=== PATIENT | female | born 1985 | race Caucasian/White ===

== ENCOUNTER 2018-07-22 08:57 | Outpatient (CLI) | payer MEDICAID ==
[2018-07-22] VITALS (19 sets, daily range): BP systolic 111–135; BP diastolic 62–95
[~2018-07-22 08:57] MED LIST: BUS15T PO; GABA300C PO; HYDR-569 PO; MULT1TAB74 PO; ONDA4TAB6 PO
== END 2018-07-22 23:59 | disposition home or self-care (01) ==
LOC: CARD DIAG 08:57
PROVIDERS: ATTEND Internal Medicine Interventional Cardiology
DX: R42 Dizziness and giddiness (principal); Z87.891 Personal history of nicotine dependence
CPT/HCPCS: 93660

== ENCOUNTER 2018-08-18 16:03 | Emergency (ER) | payer MEDICAID ==
[~2018-08-18] VITALS: Ht 167.6 cm; Wt 96.4 kg
[~2018-08-18 16:03] MED LIST changes: +HYDR-4383 PO; -HYDR-569 PO
[2018-08-18] MEDS ORDERED: DOXY100C43 PO (16:57)
[2018-08-18 17:27] VITALS: BP 115/61
== END 2018-08-18 17:30 | disposition home or self-care (01) ==
LOC: ER 16:04
DX: R68.84 Jaw pain (principal); G43.909 Migraine, unspecified, not intractable, without status migrainosus; G89.29 Other chronic pain; F41.9 Anxiety disorder, unspecified; Z56.0 Unemployment, unspecified; Z88.1 Allergy status to other antibiotic agents; Z88.2 Allergy status to sulfonamides; Z88.8 Allergy status to other drugs, medicaments and biological substances
CPT/HCPCS: 99283

== ENCOUNTER 2019-08-20 09:24 | Emergency (ER) | payer MEDICAID ==
[~2019-08-20] VITALS: Ht 165.1 cm; Wt 93.9 kg
[~2019-08-20 09:24] MED LIST changes: +PRED50TA PO
[2019-08-20 09:31] VITALS: BP 118/79
[2019-08-20] MEDS ORDERED: azithromycin 250mg tablet PO ONE ×2 (11:20)
[2019-08-20] MEDS ORDERED: AZIT-63 PO (11:23)
== END 2019-08-20 11:50 | disposition home or self-care (01) ==
LOC: ER 09:24
DX: J02.0 Streptococcal pharyngitis (principal); G43.909 Migraine, unspecified, not intractable, without status migrainosus; G89.29 Other chronic pain; F41.9 Anxiety disorder, unspecified; Z98.890 Other specified postprocedural states; Z56.0 Unemployment, unspecified; Z88.1 Allergy status to other antibiotic agents; Z88.2 Allergy status to sulfonamides; Z79.2 Long term (current) use of antibiotics; Z79.899 Other long term (current) drug therapy
CPT/HCPCS: 87880; 99283

== ENCOUNTER 2021-12-06 19:48 | Emergency (ER) | payer MEDICAID ==
[~2021-12-06] VITALS: Ht 165.1 cm; Wt 98.6 kg
[~2021-12-06 19:48] MED LIST changes: +MULT-620 PO; -MULT1TAB74 PO
[2021-12-06 19:55] VITALS: BP 128/80
[2021-12-06 20:24] LABS: BASOPHILS % (AUTO) 0.6 % (0-1); EOSINOPHILS # (AUTO) 0.2 X10'3 (0-0.9); EOSINOPHILS % (AUTO) 2.3 % (0-6); HEMOGLOBIN 12.5 g/dl (12.0-16.0); LYMPHOCYTES # (AUTO) 2.7 X10'3 (1.1-4.8); LYMPHOCYTES % (AUTO) 36.4 % (21-51); MEAN CORPUSCULAR HEMOGLOBIN 30.7 PG (27.0-31.0); MEAN CORPUSCULAR HGB CONC 34.6 g/dL (33.0-36.5); MEAN CORPUSCULAR VOLUME 88.7 FL (78-98); MEAN PLATELET VOLUME 8.4 FL (7.4-10.4); MONOCYTES # (AUTO) 0.3 X10'3 (0-0.9); MONOCYTES % (AUTO) 4.6 % (2-12); NEUTROPHILS # (AUTO) 4.1 X10'3 (1.8-7.7); NEUTROPHILS % (AUTO) 56.1 % (42-75); PLATELET COUNT 236 X10'3 (140-440); RED BLOOD COUNT 4.06 X10'6 (4.20-5.60); WHITE BLOOD COUNT 7.3 X10'3 (4.5-11.0)
[2021-12-06 20:32] LABS: D-DIMER 0.29 MG/L FEU (0-0.50)
[2021-12-06 20:36] LABS: ALANINE AMINOTRANSFERASE 49 U/L (12-78); ALBUMIN 3.5 G/DL (3.4-5.0); ALBUMIN/GLOBULIN RATIO 1.1 (1.1-1.5); ALKALINE PHOSPHATASE 49 IU/L (46-116); ANION GAP 8 (8-16); ASPARTATE AMINO TRANSFERASE 23 U/L (10-37); BILIRUBIN,TOTAL 0.4 MG/DL (0.1-1.0); BLOOD UREA NITROGEN 18 MG/DL (7-18); BUN/CREATININE RATIO 21.4 (6.6-38.0); CHLORIDE 105 MMOL/L (99-107); CREATININE 0.84 MG/DL (0.40-0.90); GLUCOSE 71 MG/DL (70-104); POTASSIUM 3.4 MMOL/L (3.5-5.1); SODIUM 142 MMOL/L (135-145); TOTAL CARBON DIOXIDE 28.8 MMOL/L (24-32); TOTAL PROTEIN 6.7 G/DL (6.4-8.2); eGFR 77 ML/MIN
== END 2021-12-06 22:25 | disposition home or self-care (01) ==
LOC: ER 19:49
DX: U09.9 Post COVID-19 condition, unspecified (principal); R07.89 Other chest pain; R11.0 Nausea; G43.909 Migraine, unspecified, not intractable, without status migrainosus; G89.29 Other chronic pain; F41.9 Anxiety disorder, unspecified; Z98.890 Other specified postprocedural states; Z56.0 Unemployment, unspecified; Z88.1 Allergy status to other antibiotic agents; Z88.8 Allergy status to other drugs, medicaments and biological substances; Z79.899 Other long term (current) drug therapy
CPT/HCPCS: 36415; 71045; 80053; 84484; 85025; 85379; 93005; 99285

== ENCOUNTER 2022-12-03 02:23 | Emergency (ER) | payer MEDICAID ==
[~2022-12-03] VITALS: Ht 165.1 cm; Wt 93.2 kg
[2022-12-03 03:11] LABS: BASOPHILS % (AUTO) 0.5 % (0-1); EOSINOPHILS # (AUTO) 0.2 X10'3 (0-0.9); EOSINOPHILS % (AUTO) 1.8 % (0-6); HEMATOCRIT 35.4 % (35.0-45.0); HEMOGLOBIN 12.2 g/dl (12.0-16.0); LYMPHOCYTES # (AUTO) 3.2 X10'3 (1.1-4.8); LYMPHOCYTES % (AUTO) 35.3 % (21-51); MEAN CORPUSCULAR HEMOGLOBIN 30.8 PG (27.0-31.0); MEAN CORPUSCULAR HGB CONC 34.5 g/dL (33.0-36.5); MEAN CORPUSCULAR VOLUME 89.2 FL (78-98); MEAN PLATELET VOLUME 8.3 FL (7.4-10.4); MONOCYTES # (AUTO) 0.4 X10'3 (0-0.9); MONOCYTES % (AUTO) 4.6 % (2-12); NEUTROPHILS # (AUTO) 5.2 X10'3 (1.8-7.7); NEUTROPHILS % (AUTO) 57.8 % (42-75); PLATELET COUNT 224 X10'3 (140-440); RED BLOOD COUNT 3.97 X10'6 (4.20-5.60); RED CELL DISTRIBUTION WIDTH 12.7 % (11.5-14.5); WHITE BLOOD COUNT 8.9 X10'3 (4.5-11.0)
[2022-12-03 03:32] LABS: ALANINE AMINOTRANSFERASE 44 U/L (12-78); ALBUMIN 3.5 G/DL (3.4-5.0); ALBUMIN/GLOBULIN RATIO 1.1 (1.1-1.5); ALKALINE PHOSPHATASE 50 IU/L (46-116); ANION GAP 5 (8-16); ASPARTATE AMINO TRANSFERASE 27 U/L (10-37); BILIRUBIN,TOTAL 0.3 MG/DL (0.1-1.0); BLOOD UREA NITROGEN 17 MG/DL (7-18); BUN/CREATININE RATIO 21.8 (6.6-38.0); CALCIUM 8.9 MG/DL (8.5-10.1); CHLORIDE 105 MMOL/L (99-107); CREATININE 0.78 MG/DL (0.40-0.90); GLUCOSE 102 MG/DL (70-104); POTASSIUM 3.5 MMOL/L (3.5-5.1); SODIUM 139 MMOL/L (135-145); TOTAL CARBON DIOXIDE 29.3 MMOL/L (24-32); TOTAL PROTEIN 6.7 G/DL (6.4-8.2); eGFR 83 ML/MIN
[2022-12-03 05:00] VITALS: BP 113/74
[2022-12-03] MEDS ORDERED: bacitracin 15gm ointment TP ONE (05:20)
== END 2022-12-03 05:33 | disposition home or self-care (01) ==
LOC: ER 02:23
DX: R07.89 Other chest pain (principal); R11.0 Nausea; G43.909 Migraine, unspecified, not intractable, without status migrainosus; G89.29 Other chronic pain; F41.9 Anxiety disorder, unspecified; Z98.890 Other specified postprocedural states; Z56.0 Unemployment, unspecified; Z88.1 Allergy status to other antibiotic agents; Z88.2 Allergy status to sulfonamides; Z88.8 Allergy status to other drugs, medicaments and biological substances; Z79.899 Other long term (current) drug therapy
CPT/HCPCS: 36415; 71045; 80053; 83880; 84484; 85025; 93005; 99285

== ENCOUNTER 2023-10-07 20:58 | Emergency (ER) | payer MEDICAID ==
[~2023-10-07] VITALS: Ht 165.1 cm; Wt 90.9 kg
[2023-10-07 21:42] LABS: BASOPHILS # (AUTO) 0.1 X10'3 (0-0.2); BASOPHILS % (AUTO) 0.7 % (0-1); EOSINOPHILS # (AUTO) 0.3 X10'3 (0-0.9); EOSINOPHILS % (AUTO) 3.8 % (0-6); HEMATOCRIT 34.3 % (35.0-45.0); HEMOGLOBIN 11.8 g/dl (12.0-16.0); LYMPHOCYTES # (AUTO) 3.1 X10'3 (1.1-4.8); LYMPHOCYTES % (AUTO) 41.6 % (21-51); MEAN CORPUSCULAR HEMOGLOBIN 30.3 PG (27.0-31.0); MEAN CORPUSCULAR HGB CONC 34.3 g/dL (33.0-36.5); MEAN CORPUSCULAR VOLUME 88.3 FL (78-98); MEAN PLATELET VOLUME 8.2 FL (7.4-10.4); MONOCYTES # (AUTO) 0.3 X10'3 (0-0.9); NEUTROPHILS # (AUTO) 3.7 X10'3 (1.8-7.7); NEUTROPHILS % (AUTO) 49.9 % (42-75); PLATELET COUNT 251 X10'3 (140-440); RED BLOOD COUNT 3.88 X10'6 (4.20-5.60); RED CELL DISTRIBUTION WIDTH 12.8 % (11.5-14.5); WHITE BLOOD COUNT 7.3 X10'3 (4.5-11.0)
[2023-10-07 21:55] LABS: ALANINE AMINOTRANSFERASE 28 U/L (12-78); ALBUMIN 3.5 G/DL (3.4-5.0); ALBUMIN/GLOBULIN RATIO 0.9 (1.1-1.5); ALKALINE PHOSPHATASE 52 IU/L (46-116); ANION GAP 5 (8-16); ASPARTATE AMINO TRANSFERASE 19 U/L (10-37); BILIRUBIN,TOTAL 0.2 MG/DL (0.1-1.0); BLOOD UREA NITROGEN 13 MG/DL (7-18); BUN/CREATININE RATIO 18.3 (10.0-20.0); CALCIUM 8.1 MG/DL (8.5-10.1); CHLORIDE 101 MMOL/L (99-107); CREATININE 0.71 MG/DL (0.40-0.90); GLUCOSE 97 MG/DL (70-104); POTASSIUM 3.7 MMOL/L (3.5-5.1); SODIUM 135 MMOL/L (135-145); TOTAL CARBON DIOXIDE 29.4 MMOL/L (24-32); TOTAL PROTEIN 7.2 G/DL (6.4-8.2); eCRCL 97 ML/MIN; eGFR > 90 ML/MIN
[2023-10-07 22:02] LABS: PRO BRAIN NATRIURETIC PEPTIDE < 30 PG/ML (0-125)
[2023-10-07 23:48] LABS: MAGNESIUM 1.9 MG/DL (1.5-2.4); THYROID STIMULATING HORMONE 1.14 ulU/ml (0.34-4.50)
[2023-10-08 00:50] LABS: URINE HCG NEGATIVE (NEG)
[2023-10-08 00:51] LABS: BILIRUBIN,URINE NEGATIVE (Neg); CLARITY,URINE CLEAR (Clear); GLUCOSE, URINE NEGATIVE (Neg); KETONES,URINE NEGATIVE (Neg); LEUKOCYTE ESTERASE ,URINE NEGATIVE (Neg); NITRITES, URINE NEGATIVE (Neg); OCCULT BLOOD,URINE NEGATIVE (Neg); PH,URINE 7.5 (4.8-8.0); PROTEIN,URINE NEGATIVE (Neg); UROBILINOGEN,URINE 0.2 E.U/dL (0.2-1.0)
[2023-10-08 00:57] LABS: UA COLLECTION TYPE NON-SPECIFIED
[2023-10-08 00:58] LABS: COLOR,URINE STRAW (Yellow)
[2023-10-08] MEDS ORDERED: normal saline 1000ml 1,000 ML IV ONE (03:20)
[2023-10-08] MEDS ORDERED: calcium gluconate inj. 2 GM in normal saline 100ml IV soln 100 ML IV ONE (04:05)
[2023-10-08] MEDS ORDERED: calcium gluconate inj. 2 GM in normal saline 100ml IV soln 80 ML IV ONE (04:15)
[2023-10-08 06:02] VITALS: BP 106/67; PULSE 62; RESP 15; TEMP 98.6; O2SAT 99
== END 2023-10-08 06:04 | disposition home or self-care (01) ==
LOC: ER 20:59
DX: D64.9 Anemia, unspecified (principal); E83.51 Hypocalcemia; I95.1 Orthostatic hypotension; G43.909 Migraine, unspecified, not intractable, without status migrainosus; G89.29 Other chronic pain; Z56.0 Unemployment, unspecified; Z88.1 Allergy status to other antibiotic agents; Z88.2 Allergy status to sulfonamides; Z88.8 Allergy status to other drugs, medicaments and biological substances; Z79.899 Other long term (current) drug therapy
CPT/HCPCS: 36415; 70450; 71045; 80053; 81003; 81025; 82607; 83735; 83880; 84443; 84484; 85025; 93005; 96361; 96365; 99285; J0610; J3490; J7030

== ENCOUNTER → 2023-10-10 | Outpatient (CLI) | payer MEDICAID ==
[2023-10-10] VITALS (22 sets, daily range): BP systolic 99–116; BP diastolic 60–78; PULSE 56–92
== END | disposition home or self-care (01) ==
LOC: CARD DIAG 00:35
PROVIDERS: ATTEND Internal Medicine Interventional Cardiology
DX: R00.1 Bradycardia, unspecified (principal)
CPT/HCPCS: 93660

== ENCOUNTER 2024-03-01 17:43 | Inpatient (IN) | payer MEDICAID ==
[~2024-03-01] VITALS: Ht 165.1 cm; Wt 86.0 kg
[2024-03-01] MEDS: pantoprazole 40 MG vial IV ONE (21:47)
[2024-03-01] MEDS: normal saline 1000ML IV soln IVB ONE (21:47)
[2024-03-01] MEDS: ondansetron/PF 4mg/2ml inj IV ONE (21:47)
[2024-03-01] MEDS: morphine 4 MG/ML inj SYRINge IV ONE (21:47)
[2024-03-01] MEDS: morphine 2 MG/ML inj. syringe IV PRN (23:18)
[2024-03-02] MEDS: ondansetron/PF 4mg/2ml inj IV ONE (03:20)
[2024-03-02] MEDS: HYDROmorphone 1 mg/ml syringe IV PRN (03:23)
[2024-03-02] MEDS ORDERED: FLUD0.1T PO (03:26)
[2024-03-02] MEDS ORDERED: LYR25C PO (03:26)
[2024-03-02] MEDS ORDERED: MIDO5TAB4 PO (03:26)
[2024-03-02] MEDS: pregabalin 25mg capsule PO SCH ×2 (03:42→20:14)
[2024-03-02] MEDS ORDERED: pregabalin 75mg capsule PO ONE (07:00)
[2024-03-02] MEDS: pregabalin 25mg capsule PO ONE (07:13)
[2024-03-02] MEDS: HYDROmorphone 1 mg/ml syringe IV ONE ×3 (09:25→23:29)
[2024-03-02] MEDS: methylPREDNISolone sod succ 125mg/2ml vial IV ONE (16:06)
[2024-03-02] MEDS ORDERED: OXYC-150 PO (16:13)
[2024-03-02] MEDS ORDERED: potassium Cl 40MEQ/1/2NS 520ml 520 ML IV PRN (17:20)
[2024-03-02] MEDS ORDERED: acetaminophen 325mg tablet PO PRN (17:20)
[2024-03-02] MEDS ORDERED: magnesium Cl slow-release 64mg tablet PO PRN (17:20)
[2024-03-02] MEDS ORDERED: mag hydrox/Alum hydrox/simeth 30ml oral suspension PO PRN (17:20)
[2024-03-02] MEDS ORDERED: magnesium 2GM in 50ml NS 50 ML IV PRN (17:20)
[2024-03-02] MEDS ORDERED: morphine 2 MG/ML inj. syringe IV PRN (17:20)
[2024-03-02] MEDS ORDERED: ondansetron/PF 4mg/2ml inj IV PRN (17:20)
[2024-03-02] MEDS ORDERED: HYDROmorphone/PF 0.2 MG/ML SYRINGE IV PRN (17:20)
[2024-03-02] MEDS ORDERED: potassium Cl 20 mEq SR tablet PO PRN (17:20)
[2024-03-02] MEDS ORDERED: magnesium hydroxide 30ml (MOM) UD suspension PO PRN (17:20)
[2024-03-02] MEDS ORDERED: magnesium 4gm in 100ml NS 100 ML IV PRN (17:20)
[2024-03-02] MEDS: normal saline 1000ml 1,000 ML IV SCH (18:13)
[2024-03-02 18:36] LABS: MAGNESIUM 1.6 MG/DL (1.5-2.4); POTASSIUM 3.4 MMOL/L (3.5-5.1)
[2024-03-02 19:36] VITALS: BP 135/72; PULSE 52; RESP 16; TEMP 98.6; O2SAT 99
[2024-03-02 20:00] VITALS: RESP 16; O2SAT 100
[2024-03-02] MEDS: K and/or MAG REPLACEMENT MC SCH (20:00)
[2024-03-02] MEDS ORDERED: fludrocortisone acetate 0.1mg tablet PO SCH (20:00)
[2024-03-02] MEDS ORDERED: midodrine 5mg tablet PO SCH (20:00)
[2024-03-02] MEDS ORDERED: MAGN64TA10 PO (20:10)
[2024-03-02] MEDS ORDERED: ALPR0.252 PO (20:10)
[2024-03-02] MEDS ORDERED: CHOL500044 PO (20:10)
[2024-03-02] MEDS: docusate sod 100mg capsule PO SCH (20:14)
[2024-03-02] MEDS: HYDROmorphone inj. 0.5 MG/0.5 ML DISP.SYRIN IV PRN (20:14)
[2024-03-02] MEDS ORDERED: Adrenal Support (20:23)
[2024-03-02] MEDS ORDERED: TURM500T (20:23)
[2024-03-02] MEDS: midodrine 5mg tablet PO SCH (21:30)
[2024-03-02] MEDS: potassium Cl 20 mEq SR tablet PO PRN (21:30)
[2024-03-02] MEDS: oxyCODONE/APAP 10/325mg tablet PO ONE (21:32)
[2024-03-02 22:00] VITALS: BP 121/67; PULSE 60; RESP 20; TEMP 97.9; O2SAT 99
[2024-03-02] MEDS: dexamethasone 4mg/ml inj IV SCH (23:28)
[2024-03-03] VITALS (29 sets, daily range): BP systolic 88–146; BP diastolic 46–88; PULSE 54–94; RESP 14–22; TEMP 97.8–98.6; O2SAT 92–100
[2024-03-03] MEDS ORDERED: dexamethasone 4mg/ml inj IM SCH
[2024-03-03] MEDS: LIDOcaine 5% patch TP ONE (02:43)
[2024-03-03] MEDS: HYDROmorphone 1 mg/ml syringe IV ONE (02:57)
[2024-03-03] MEDS: oxyCODONE/APAP 10/325mg tablet PO ONE (05:52)
[2024-03-03] MEDS: diazepam 5mg tablet PO ONE (05:53)
[2024-03-03] MEDS ORDERED: diazepam inj 5 MG/ML inj. IV SCH (08:00)
[2024-03-03 09:02] LABS: BASOPHILS % (AUTO) 0.1 % (0-1); EOSINOPHILS % (AUTO) 0 % (0-6); HEMATOCRIT 40.6 % (35.0-45.0); HEMOGLOBIN 13.9 g/dl (12.0-16.0); LYMPHOCYTES # (AUTO) 1.2 X10'3 (1.1-4.8); LYMPHOCYTES % (AUTO) 16.2 % (21-51); MEAN CORPUSCULAR HEMOGLOBIN 30.1 PG (27.0-31.0); MEAN CORPUSCULAR HGB CONC 34.2 g/dL (33.0-36.5); MEAN PLATELET VOLUME 9.4 FL (7.4-10.4); MONOCYTES # (AUTO) 0.2 X10'3 (0-0.9); MONOCYTES % (AUTO) 2.4 % (2-12); NEUTROPHILS # (AUTO) 6.1 X10'3 (1.8-7.7); NEUTROPHILS % (AUTO) 81.3 % (42-75); PLATELET COUNT 316 X10'3 (140-440); RED BLOOD COUNT 4.61 X10'6 (4.20-5.60); RED CELL DISTRIBUTION WIDTH 13.4 % (11.5-14.5); WHITE BLOOD COUNT 7.5 X10'3 (4.5-11.0)
[2024-03-03 09:04] LABS: APTT 26 SECONDS (22-32); INR 1.1 INR; PROTHROMBIN TIME 11.3 SECONDS (9.0-12.0)
[2024-03-03 09:12] LABS: ALANINE AMINOTRANSFERASE 27 U/L (12-78); ALBUMIN 3.9 G/DL (3.4-5.0); ALBUMIN/GLOBULIN RATIO 0.9 (1.1-1.5); ALKALINE PHOSPHATASE 46 IU/L (46-116); ANION GAP 9 (8-16); ASPARTATE AMINO TRANSFERASE 17 U/L (10-37); BILIRUBIN,TOTAL 0.7 MG/DL (0.1-1.0); BLOOD UREA NITROGEN 8 MG/DL (7-18); BUN/CREATININE RATIO 12.1 (10.0-20.0); CALCIUM 9.5 MG/DL (8.5-10.1); CHLORIDE 103 MMOL/L (99-107); CREATININE 0.66 MG/DL (0.40-0.90); GLUCOSE 110 MG/DL (70-104); MAGNESIUM 1.7 MG/DL (1.5-2.4); PHOSPHORUS 3.8 MG/DL (2.3-4.5); POTASSIUM 3.5 MMOL/L (3.5-5.1); SODIUM 140 MMOL/L (135-145); TOTAL CARBON DIOXIDE 28.1 MMOL/L (24-32); TOTAL PROTEIN 8.1 G/DL (6.4-8.2); eCRCL 104 ML/MIN; eGFR > 90 ML/MIN
[2024-03-03] MEDS ORDERED: ringers solution, lacted 1,000 ML IV ONE (11:10)
[2024-03-03] MEDS ORDERED: gelatin sponge, absorbable (Gelfoam 100) sponge TP ONE (12:13)
[2024-03-03] MEDS ORDERED: Thrombin (Bovine) 5,000 unit vial TP ONE ×2 (12:13→12:32)
[2024-03-03] MEDS: morphine 2 MG/ML inj. syringe IV PRN (12:21)
[2024-03-03] MEDS ORDERED: BUPIVAcaine 2.5mg/ml inj 50ml vial (contains preservative) ONE (12:32)
[2024-03-03] MEDS ORDERED: LIDOcaine 1% (10mg/ml) 2ml vial ONE (13:11)
[2024-03-03] MEDS ORDERED: ondansetron/PF 4mg/2ml inj ONE (13:18)
[2024-03-03] MEDS ORDERED: LIDOcaine 2% (20mg/ml) 5ml vial ONE (13:18)
[2024-03-03] MEDS ORDERED: propofol inj 20 ML IV ONE (13:18)
[2024-03-03] MEDS ORDERED: rocuronium 10mg/ml inj IV ONE (13:18)
[2024-03-03] MEDS ORDERED: vancomycin 1,000mg inj ONE ×2 (13:21→14:11)
[2024-03-03] MEDS ORDERED: fentaNYL /PF 50mcg/ml 5ml ampule ONE (14:05)
[2024-03-03] MEDS ORDERED: ePHEDrine 50MG/ML INJ. ONE (14:13)
[2024-03-03] MEDS ORDERED: methylPREDNISolone acetate 80mg/ml inj**IM only ONE (14:14)
[2024-03-03] MEDS ORDERED: dexmedetomidine 200mcg/2ml inj. IV ONE (14:21)
[2024-03-03] MEDS ORDERED: acetaminophen 1,000mg/100ml IV 100 ML IV ONE (14:32)
[2024-03-03] MEDS ORDERED: enalaprilat dihydrate 2.5mg/2ml vial IV PRN ×2 (14:50→15:00)
[2024-03-03] MEDS ORDERED: fentaNYL/PF 50MCG/1 ML 2ML syringe IV PRN ×4 (14:50→15:00)
[2024-03-03] MEDS: ringers solution, lacted 1,000 ML IV SCH ×2 (14:50→15:00)
[2024-03-03] MEDS ORDERED: ondansetron/PF 4mg/2ml inj IV PRN ×2 (14:50→15:00)
[2024-03-03] MEDS ORDERED: morphine 2 MG/ML inj. syringe IV PRN (14:50)
[2024-03-03] MEDS ORDERED: hydrALAZINE 20mg/ml inj. IV PRN ×2 (14:50→15:00)
[2024-03-03] MEDS ORDERED: HYDROmorphone/PF 0.2 MG/ML SYRINGE IV PRN (15:00)
[2024-03-03] MEDS: BUPIVAcaine/PF 2.5mg/ml (0.25%) 10ml vial ONE (15:55)
[2024-03-03] MEDS: Thrombin (Bovine) 5,000 unit vial TP ONE (15:56)
[2024-03-03] MEDS: methylPREDNISolone sod succ/PF 40mg inj. IM ONE (16:08)
[2024-03-03] MEDS ORDERED: BUPIVAcaine/PF 2.5mg/ml (0.25%) 10ml vial ONE (16:11)
[2024-03-03] MEDS ORDERED: sugammadex 200mg/2ml injection IV ONE (16:11)
[2024-03-03] MEDS: morphine 4 MG/ML inj SYRINge IV PRN (17:48)
[2024-03-03] MEDS ORDERED: oxyCODONE/APAP 5-325mg tablet PO PRN (18:00)
[2024-03-03] MEDS ORDERED: baclofen 10mg tablet PO PRN (18:20)
[2024-03-03] MEDS: HYDROmorphone/PF 0.2 MG/ML SYRINGE IV PRN (18:39)
[2024-03-03] MEDS: oxyCODONE/APAP 10/325mg tablet PO PRN (18:59)
[2024-03-03] MEDS: diazepam 5mg tablet PO SCH (20:39)
[2024-03-03] MEDS: bacitracin/polymyxin B 15 GM ointment TP SCH (20:39)
[2024-03-04] MEDS: HYDROmorphone 1 mg/ml syringe IV PRN (01:49)
[2024-03-04 02:00] VITALS: BP 117/59; PULSE 53; RESP 18; TEMP 98.7; O2SAT 99
[2024-03-04 06:57] VITALS: BP 115/57; PULSE 54; RESP 18; TEMP 98; O2SAT 98
[2024-03-04 07:59] LABS: BASOPHILS % (AUTO) 0.1 % (0-1); EOSINOPHILS % (AUTO) 0 % (0-6); HEMATOCRIT 34.7 % (35.0-45.0); HEMOGLOBIN 11.9 g/dl (12.0-16.0); LYMPHOCYTES # (AUTO) 1.2 X10'3 (1.1-4.8); LYMPHOCYTES % (AUTO) 10.7 % (21-51); MEAN CORPUSCULAR HEMOGLOBIN 30.3 PG (27.0-31.0); MEAN CORPUSCULAR HGB CONC 34.3 g/dL (33.0-36.5); MEAN CORPUSCULAR VOLUME 88.4 FL (78-98); MEAN PLATELET VOLUME 8.9 FL (7.4-10.4); MONOCYTES # (AUTO) 0.4 X10'3 (0-0.9); MONOCYTES % (AUTO) 3.9 % (2-12); NEUTROPHILS # (AUTO) 9.3 X10'3 (1.8-7.7); NEUTROPHILS % (AUTO) 85.3 % (42-75); PLATELET COUNT 224 X10'3 (140-440); RED BLOOD COUNT 3.92 X10'6 (4.20-5.60); RED CELL DISTRIBUTION WIDTH 13.6 % (11.5-14.5); WHITE BLOOD COUNT 10.9 X10'3 (4.5-11.0)
[2024-03-04 08:11] LABS: APTT 24 SECONDS (22-32); INR 1.1 INR; PROTHROMBIN TIME 11.7 SECONDS (9.0-12.0)
[2024-03-04 08:24] LABS: ALANINE AMINOTRANSFERASE 18 U/L (12-78); ALBUMIN 3.4 G/DL (3.4-5.0); ALKALINE PHOSPHATASE 34 IU/L (46-116); ANION GAP 9 (8-16); ASPARTATE AMINO TRANSFERASE 7 U/L (10-37); BILIRUBIN,TOTAL 0.7 MG/DL (0.1-1.0); BLOOD UREA NITROGEN 7 MG/DL (7-18); BUN/CREATININE RATIO 11.7 (10.0-20.0); CALCIUM 8.8 MG/DL (8.5-10.1); CHLORIDE 106 MMOL/L (99-107); GLUCOSE 119 MG/DL (70-104); MAGNESIUM 1.6 MG/DL (1.5-2.4); PHOSPHORUS 2.7 MG/DL (2.3-4.5); POTASSIUM 3.5 MMOL/L (3.5-5.1); SODIUM 143 MMOL/L (135-145); TOTAL CARBON DIOXIDE 28.2 MMOL/L (24-32); TOTAL PROTEIN 6.7 G/DL (6.4-8.2); eCRCL 114 ML/MIN; eGFR > 90 ML/MIN
[2024-03-04 10:00] VITALS: BP 144/71; PULSE 80; RESP 18; TEMP 98; O2SAT 96
[2024-03-04] MEDS ORDERED: HYDROmorphone inj. 0.5 MG/0.5 ML DISP.SYRIN IV PRN (11:20)
[2024-03-04] MEDS: vancomycin/NS 1 GM ADD-VANTAGE 250 ML IV ONE (11:35)
[2024-03-04] MEDS: oxyCODONE IR 5mg (immed. release) tablet PO SCH (14:15)
[2024-03-04] MEDS: cyclobenzaprine 10mg tablet PO SCH (15:42)
[2024-03-04 18:00] VITALS: BP 122/77; PULSE 55; RESP 18; TEMP 98.3; O2SAT 95
[2024-03-04] MEDS: HYDROmorphone inj. 0.5 MG/0.5 ML DISP.SYRIN IV PRN (18:08)
[2024-03-04] MEDS: midodrine tablet 2.5 MG TABLET PO SCH (20:35)
[2024-03-04] MEDS: fludrocortisone acetate 0.1mg tablet PO SCH (20:36)
[2024-03-04 22:00] VITALS: BP 110/59; PULSE 62; RESP 15; TEMP 97.9; O2SAT 97
[2024-03-05 00:30] VITALS: PULSE 47
[2024-03-05 01:30] VITALS: PULSE 45
[2024-03-05 06:00] VITALS: BP 113/57; PULSE 50; RESP 14; TEMP 97.5; O2SAT 97
[2024-03-05 06:58] LABS: BASOPHILS % (AUTO) 0.1 % (0-1); EOSINOPHILS % (AUTO) 0.1 % (0-6); HEMATOCRIT 32.4 % (35.0-45.0); HEMOGLOBIN 11.1 g/dl (12.0-16.0); LYMPHOCYTES # (AUTO) 3.3 X10'3 (1.1-4.8); LYMPHOCYTES % (AUTO) 40.8 % (21-51); MEAN CORPUSCULAR HEMOGLOBIN 30.4 PG (27.0-31.0); MEAN CORPUSCULAR HGB CONC 34.2 g/dL (33.0-36.5); MEAN CORPUSCULAR VOLUME 88.9 FL (78-98); MEAN PLATELET VOLUME 9.2 FL (7.4-10.4); MONOCYTES # (AUTO) 0.5 X10'3 (0-0.9); MONOCYTES % (AUTO) 5.7 % (2-12); NEUTROPHILS # (AUTO) 4.2 X10'3 (1.8-7.7); NEUTROPHILS % (AUTO) 53.3 % (42-75); PLATELET COUNT 187 X10'3 (140-440); RED BLOOD COUNT 3.64 X10'6 (4.20-5.60); RED CELL DISTRIBUTION WIDTH 13.6 % (11.5-14.5)
[2024-03-05 07:03] LABS: APTT 24 SECONDS (22-32); INR 1.1 INR; PROTHROMBIN TIME 11.5 SECONDS (9.0-12.0)
[2024-03-05 07:05] LABS: ALANINE AMINOTRANSFERASE 19 U/L (12-78); ALBUMIN 2.9 G/DL (3.4-5.0); ALBUMIN/GLOBULIN RATIO 0.9 (1.1-1.5); ALKALINE PHOSPHATASE 31 IU/L (46-116); ANION GAP 5 (8-16); ASPARTATE AMINO TRANSFERASE 9 U/L (10-37); BILIRUBIN,TOTAL 0.5 MG/DL (0.1-1.0); BLOOD UREA NITROGEN 10 MG/DL (7-18); BUN/CREATININE RATIO 18.5 (10.0-20.0); CALCIUM 8.2 MG/DL (8.5-10.1); CHLORIDE 108 MMOL/L (99-107); CREATININE 0.54 MG/DL (0.40-0.90); GLUCOSE 86 MG/DL (70-104); MAGNESIUM 1.6 MG/DL (1.5-2.4); PHOSPHORUS 3.4 MG/DL (2.3-4.5); POTASSIUM 3.3 MMOL/L (3.5-5.1); SODIUM 143 MMOL/L (135-145); eCRCL 127 ML/MIN; eGFR > 90 ML/MIN
[2024-03-05] MEDS: ketorolac trometh. 30mg/ml inj. IV ONE ×2 (07:40→09:10)
[2024-03-05] MEDS ORDERED: hydrOXYzine 25 MG tablet PO PRN (07:55)
[2024-03-05] MEDS: hydrOXYzine 25 MG tablet PO ONE (08:14)
[2024-03-05 10:00] VITALS: BP 110/68; PULSE 70; RESP 18; TEMP 98.4; O2SAT 98
[2024-03-05] MEDS: oxyCODONE IR 5mg (immed. release) tablet PO ONE (11:05)
[2024-03-05 18:00] VITALS: BP 104/57; PULSE 70; RESP 16; TEMP 97.9; O2SAT 98
[2024-03-05 22:00] VITALS: BP 128/89; PULSE 70; RESP 16; TEMP 97.7; O2SAT 96
[2024-03-06 06:00] VITALS: BP 103/55; PULSE 55; RESP 16; TEMP 97.9; O2SAT 96
[2024-03-06 08:00] VITALS: RESP 15; O2SAT 99
[2024-03-06 09:10] LABS: BASOPHILS % (AUTO) 0.2 % (0-1); EOSINOPHILS % (AUTO) 0.6 % (0-6); HEMATOCRIT 34.3 % (35.0-45.0); HEMOGLOBIN 11.8 g/dl (12.0-16.0); LYMPHOCYTES # (AUTO) 2.7 X10'3 (1.1-4.8); LYMPHOCYTES % (AUTO) 46.8 % (21-51); MEAN CORPUSCULAR HEMOGLOBIN 30.3 PG (27.0-31.0); MEAN CORPUSCULAR HGB CONC 34.3 g/dL (33.0-36.5); MEAN CORPUSCULAR VOLUME 88.3 FL (78-98); MONOCYTES # (AUTO) 0.3 X10'3 (0-0.9); MONOCYTES % (AUTO) 4.6 % (2-12); NEUTROPHILS # (AUTO) 2.7 X10'3 (1.8-7.7); NEUTROPHILS % (AUTO) 47.8 % (42-75); PLATELET COUNT 195 X10'3 (140-440); RED BLOOD COUNT 3.88 X10'6 (4.20-5.60); RED CELL DISTRIBUTION WIDTH 13.2 % (11.5-14.5); WHITE BLOOD COUNT 5.7 X10'3 (4.5-11.0)
[2024-03-06 09:19] LABS: PROTHROMBIN TIME 10.7 SECONDS (9.0-12.0)
[2024-03-06 09:33] LABS: ALANINE AMINOTRANSFERASE 22 U/L (12-78); ALBUMIN 2.9 G/DL (3.4-5.0); ALKALINE PHOSPHATASE 32 IU/L (46-116); ANION GAP 7 (8-16); ASPARTATE AMINO TRANSFERASE 19 U/L (10-37); BILIRUBIN,TOTAL 0.4 MG/DL (0.1-1.0); BLOOD UREA NITROGEN 15 MG/DL (7-18); BUN/CREATININE RATIO 28.8 (10.0-20.0); CALCIUM 8.1 MG/DL (8.5-10.1); CHLORIDE 107 MMOL/L (99-107); CREATININE 0.52 MG/DL (0.40-0.90); GLUCOSE 79 MG/DL (70-104); MAGNESIUM 1.7 MG/DL (1.5-2.4); PHOSPHORUS 3.5 MG/DL (2.3-4.5); POTASSIUM 3.9 MMOL/L (3.5-5.1); SODIUM 143 MMOL/L (135-145); TOTAL CARBON DIOXIDE 29.5 MMOL/L (24-32); TOTAL PROTEIN 5.7 G/DL (6.4-8.2); eCRCL 132 ML/MIN; eGFR > 90 ML/MIN
[2024-03-06 10:00] VITALS: BP 103/55; PULSE 51; RESP 15; TEMP 97.9; O2SAT 95
[2024-03-06] MEDS ORDERED: DIAZ10TA4 PO (10:40)
[2024-03-06 13:30] VITALS: RESP 17
== END 2024-03-06 13:35 | disposition home or self-care (01) | DRG 310 ==
LOC: ER 17:44 → ED HOLD 03-02 17:20 → ORTHO 4S 03-02 19:39
PROVIDERS: ADMIT Family Medicine; ATTEND Family Medicine
PROC: 0SB20ZZ Excision of Lumbar Vertebral Disc, Open Approach (ICD-10-PCS; 2024-03-03)
PROC: 01NB0ZZ Release Lumbar Nerve, Open Approach (ICD-10-PCS; 2024-03-03)
PROC: 03HY32Z Insertion of Monitoring Device into Upper Artery, Percutaneous Approach (ICD-10-PCS; principal; 2024-03-03 13:21)
DX: M51.26 Other intervertebral disc displacement, lumbar region (principal); F32.A Depression, unspecified; F41.9 Anxiety disorder, unspecified; G43.909 Migraine, unspecified, not intractable, without status migrainosus; G89.29 Other chronic pain; I95.1 Orthostatic hypotension; R00.1 Bradycardia, unspecified; Z88.1 Allergy status to other antibiotic agents; Z88.0 Allergy status to penicillin; Z88.2 Allergy status to sulfonamides; Z88.8 Allergy status to other drugs, medicaments and biological substances
CPT/HCPCS: 36415; 72100; 72148; 76000; 80053; 83735; 84100; 84132; 85025; 85610; 85730; 87081; 97110; 97116; 97161; 97530; 97535; 99291; A4215; A4618; A6213; A6449; A7000; C9113; G0378; J0131; J1040; J1100; J1170; J1885; J2270; J2371; J2405; J2704; J2920; J2930; J3010; J3370; J3490; J7030; J7050; J7120; P9045; Q0177